=== PATIENT | female | born 1960 | race Caucasian/White ===

== ENCOUNTER 2017-05-23 20:18 | Emergency (ER) | payer OTHER ==
[~2017-05-23] VITALS: Ht 165.1 cm; Wt 61.2 kg
[2017-05-23 20:21] VITALS: BP 122/67
--- NOTE | 2017-05-23 20:21 | NUR ---
Note undone in EDM - 05/23/17 at 2034 by MEDDCV 56/F BIBA FOR SYNCOPAL EPSIODE X5 MINS, WITNESSED. PER EMS PT WAS STANDING IN LINE AND HAD SYNCOPAL EPISODE HITTING HEAD ON THE WALL AND WAS ASSITED TO THE GROUND. NO HEAD INJURY/TRUAMA/HEMATOMA NOTED, GCS 15, AOX4, AMBULATORY WITH STEADY GAIT. PT DENIES HX OF SYNCOPE. ALL LUNG SOUNDS CBTA, 16RR EVEN AND UNLABORED. DENIES ANY PAIN AT THIS TIME. PMH: ASTHMA
--- NOTE | 2017-05-23 21:19 | NUR ---
Dr. May evaluating patient.
--- NOTE | 2017-05-23 21:30 | NUR ---
Patient discharged with v/s stable. Written and verbal after care instructions given and explained. Patient alert, oriented and verbalized understanding of instructions. Ambulatory with steady gait. All questions addressed prior to discharge. ID band removed. Patient advised to follow up with PMD. Rx of CIPROFLAXACIN given. Patient educated on indication of medication including possible reaction and side effects. Opportunity to ask questions provided and answered. Addendum: 05/23/17 at 2138 by NAM IV removed, catheter intact and site benign. Applied folded 4x4 gauze and tape to stop bleeding.
[2017-05-23 21:38] VITALS: BP 121/77
== END 2017-05-23 21:30 | disposition home or self-care (01) ==
LOC: MED 20:18
DX: R55 Syncope and collapse (principal); N39.0 Urinary tract infection, site not specified; Z88.0 Allergy status to penicillin; Z88.5 Allergy status to narcotic agent; Z88.8 Allergy status to other drugs, medicaments and biological substances
CPT/HCPCS: 81002; 81025; 93005; 99283